=== PATIENT | male | born 1955 | race Caucasian/White ===

== ENCOUNTER 2018-07-22 12:23 | Emergency (ER) | payer SELFPAY ==
[2018-07-22 12:47] VITALS: BP 148/93
[2018-07-22] MEDS ORDERED: KETOROLAC TROMETHAMINE 60 MG/2 ML VIAL IM ONE (12:50)
--- NOTE | 2018-07-22 13:41 | ED Physician Documentation ---
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.) - ROS CONST: no problems CVS/RESP: none GI/: denies: nausea, vomiting MS/SKIN/LYMPH: none NEURO/PSYCH: none All Systems -: Yes - PAST HX Past History: recent ear infections Allergies/Adverse Reactions: Allergies Allergy/AdvReac Type Severity Reaction Status Date / Time No Known Allergies Allergy Verified 07/22/18 12:47 Home Medications: Ambulatory Orders Medication Instructions Recorded Amoxicillin [Trimox] 500 mg PO TID #30 capsule 07/22/18 - SOCIAL HX Smoking History: cigarettes - FAMILY HX Family History: No - VITAL SIGNS Vital Signs: Vital Signs Temp Pulse Resp BP Pulse Ox 96.7 F L 115 H 15 148/93 97 07/22/18 13:09 07/22/18 13:09 07/22/18 13:09 07/22/18 13:09 07/22/18 13:09 - REVIEWED ASSESSMENTS Nursing Assessment Reviewed: Yes Vitals Reviewed: Yes Progress - Progress Progress: Attempted education on herpes; explained pain with likely due to dental caries. Unsuccessful at educating patient. Demanding antibiotic for herpes. Will prescribe for amoxil for dental abscess. 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 ) Nose: nml inspection Head/Neck: atraumatic, neck nml inspection Eye: eyes nml inspection, PERRL Resp/CVS: chest non-tender, breath sounds nml, heart sounds nml Abdomen: non-tender, no organomegaly Skin: nml color, no skin rash Neuro/Psych: oriented x3, mood/affect nml Discharge Clincal Impression: Dental abscess Clincal Impression: (Ruled Out): Pharyngitis Prescriptions: Amoxicillin [Trimox] 500 mg PO TID #30 capsule Condition: Stable Disposition: 01 HOME, SELF-CARE Decision to Admit: NO Decision Time: 13:09
== END 2018-07-22 13:09 | disposition home or self-care (01) ==
LOC: ED 12:23
DX: K04.7 Periapical abscess without sinus (principal)
CPT/HCPCS: 99281